=== PATIENT | female | born 1970 | race Caucasian/White ===

== ENCOUNTER → 2017-12-28 | Outpatient (CLI) | payer OTHER | LOC: M.RAD 15:48 | DX: M54.5 Low back pain (principal) ==

== ENCOUNTER → 2018-01-27 | Outpatient (CLI) | payer OTHER | LOC: M.RAD 08:22 | DX: M16.0 Bilateral primary osteoarthritis of hip (principal); M48.00 Spinal stenosis, site unspecified; M25.752 Osteophyte, left hip; M25.751 Osteophyte, right hip ==